=== PATIENT | female | born 1955 | race Caucasian/White ===

== ENCOUNTER 2017-02-13 12:41 | Day surgery (SDC) | payer OTHER ==
[~2017-02-13] VITALS: Ht 162.6 cm; Wt 64.0 kg
[~2017-02-13 12:41] MED LIST: ATEN25TA7 PO; FLUC150T48 PO; KRIL1CAP20 PO; MULT-946 PO; OMEP20TA86 PO; SYN75 PO; Sodium Chloride LOK Flush 10 mL Syringe IV PRN; TRIA1CAP PO; VALA1000 PO; fentaNYL-PF 50 mCg/mL 2 mL Inj IVPUSH PRN
[2017-02-13 12:56] VITALS: BP 117/74; PULSE 68; RESP 16; O2SAT 98
[2017-02-13] MEDS ORDERED: OMEP20CA11 PO (12:58)
[2017-02-13] MEDS ORDERED: LEVO75TA4 PO (12:58)
[2017-02-13] MEDS ORDERED: VALA500T2 PO (12:58)
[2017-02-13] MEDS ORDERED: ATEN25TA PO (12:58)
[2017-02-13] MEDS ORDERED: TRIA1CAP5 PO (12:58)
[2017-02-13] MEDS: 0.9% Sodium Chloride 1,000 ML IV PRN ×2 (13:22→14:08)
[2017-02-13 14:17] VITALS: BP 123/72; PULSE 70; RESP 16; O2SAT 100
[2017-02-13 14:29] VITALS: BP 120/78; PULSE 60; RESP 16; O2SAT 100
[2017-02-13 14:35] VITALS: BP 122/91; PULSE 57; RESP 16; O2SAT 100
--- NOTE | 2017-02-14 01:05 | ENDO ---
[address] [address] ENDOSCOPY PROCEDURE PATIENT: JAN GRAF : 1955 MR#: [id number] ADMIT: 02/13/2017 JOB ID: [id number] DATE OF PROCEDURE: 02/13/2017 PRIMARY PROVIDER: MELANIE Andrews. PROCEDURE: Esophagogastroscopy with biopsy and a colonoscopy. INDICATIONS: A 61-year-old female with longstanding reflux and intermittent flares or breakthrough spells requiring b.i.d. therapy. She additionally presents for colon cancer screening. EQUIPMENT: 1. GIF-H180J. 2. PCF-H180AL. SEDATION: 1. Versed 6 mg. 2. Fentanyl 125 mcg. COMPLICATIONS: None identified. BOWEL PREPARATION: Fair, adequate exam. PROCEDURE INFORMATION: After the risks and benefits were explained, written and verbal informed consent was obtained. The patient was brought into the endoscopy suite and placed into the left lateral decubitus position. Sedation was achieved using the above-stated medications with the addition of oxygen via nasal cannula. The scope was introduced into the mouth through the bite block and advanced to the stomach. The patient seemed to be experiencing some distress with attempts at advancing the scope beyond this depth. It felt like we were in essence looping in her oropharynx and/or she was gripping it with her tongue. At any rate, I did not attempt to traverse the pyloric channel and evaluate the duodenum. We did retroflex in the stomach. Ultimately, the stomach was decompressed, the scope removed from the patient, who tolerated the procedure reasonably well. The patient was then turned around and a digital rectal examination accomplished. Mild internal and external, nonbleeding, nonthrombosed hemorrhoids were noted. The scope was introduced into the rectum and advanced to the cecum as identified by the appendiceal orifice and ileocecal valve. The scope was slowly withdrawn to carefully examine the mucosa for any defects or lesions. Retroflexed views were avoided in the rectum. Multiple direct views were made through the dentate line for exclusion of pathology. The colon was decompressed, the scope removed from the patient, who tolerated the procedure well. FINDINGS: 1. Duodenum: Not seen. 2. Stomach: No significant mucosal pathology identified throughout. No ulcers, outlet obstruction or mass lesions. Retroflexed views of the LES were unremarkable. 3. Esophagus: There was a subtle sliding hiatal hernia. There were no acute erosive changes. There was one area where there may have been a 0.5 cm tongue of Fuller's around the seven o'clock location. This was targeted for biopsy. This would render this C0 M0.5 if Fuller's is confirmed. The remainder of the esophagus was unremarkable. 4. Colon: No significant polyps, mass lesions, or inflammatory features identified throughout. ENDOSCOPIC DIAGNOSES: 1. Subtle sliding hiatal hernia. 2. Possible short segment tongue of Fuller's versus Z-line irregularity. 3. Hemorrhoids. 4. Otherwise visually unremarkable endoscopy. RECOMMENDATIONS: 1. Await histopathology. 2. If Fuller's is confirmed, then repeat esophagogastroduodenoscopy will be pursued for 9-12 months. 3. Repeat colonoscopy in 10 years' time, sooner should symptoms warrant. 4. For now, continue anti-reflux regimen. Depending on preference, patient may choose to consult with Surgery for hiatal hernia repair at any time.
--- NOTE | 2017-02-16 09:33 | PATH ---
SURGICAL PATHOLOGY Attending Physician:Олег Moreau CASE STATUS: Signed Out PATIENT NAME: JAN GRAF PID: [id number] : 1955 DATE COLLECTED:02/13/2017 00:00 SPECIMEN: Esophagus, Biopsy CLINICAL HISTORY: GERD SCREENING COLONOSCOPY 1. DISTAL ESOPHAGUS BIOPSY FINAL DIAGNOSIS: 1.DISTAL ESOPHAGUS BIOPSY: PORTION OF MILDLY INFLAMED COLUMNAR OXYNTIC MUCOSA WITH NO DIAGNOSTIC ABNORMALITY. Negative for intestinal metaplasia, dysplasia and malignancy. No well-preserved squamous component identified for evaluation. ICD10 K20.9 GROSS DESCRIPTION: Received one formalin-filled container, labeled with the patient's name and labeled "distal esophagus" consists of a 0.2 x 0.1 x 0.1 cm portion of tissue, which is entirely submitted in one cassette. [place] [place][id number][place] MICRO DESCRIPTION: See diagnosis. ICD-9 CODES: CPT CODES: 1: 50046 Electronically Signed Out Nova Bhagat MD [facility] Pathology [facility] [address], [place] [address] Technical component performed at [facility], [facility] [address], [place], [address]
== END 2017-02-13 23:59 | disposition home or self-care (01) ==
LOC: END 12:41
PROVIDERS: ATTEND Internal Medicine Gastroenterology
DX: Z12.11 Encounter for screening for malignant neoplasm of colon (principal); K64.8 Other hemorrhoids; K64.4 Residual hemorrhoidal skin tags; K44.9 Diaphragmatic hernia without obstruction or gangrene; K20.9 Esophagitis, unspecified; K21.9 Gastro-esophageal reflux disease without esophagitis; E03.9 Hypothyroidism, unspecified; B00.9 Herpesviral infection, unspecified; I10 Essential (primary) hypertension; M19.90 Unspecified osteoarthritis, unspecified site; Z87.440 Personal history of urinary (tract) infections
CPT/HCPCS: 43239; 99153; G0121; G0500; J2250; J3010; J7030